=== PATIENT | female | born 1990 | race American Indian/Alaskan Native ===

== ENCOUNTER 2018-07-07 08:58 | Outpatient (CLI) | payer MEDICAID ==
--- NOTE | 2018-07-08 08:58 | Ultrasound Report ---
BILATERAL BREAST ULTRASOUND: 07/07/18 08:58:00 CLINICAL: History of bilateral breast lumps and status post right ultrasound-guided biopsy of a benign fibroadenoma 2 o'clock 2 cm from the nipple on 03/26/18. COMPARISON: Right breast ultrasound 02/09/15 and single view right mammogram 03/26/18 FINDINGS: Ultrasound of the right breast demonstrated an oval solid hypoechoic mass at 2 o'clock one centimeter from the nipple. It contains a biopsy clip, has a mild lobular margin and measures 1.5 x 1.4 x 0.9 cm.Previously it was described to be at 1 o'clock 3 cm from the nipple and measured 1.5 x 1.4 x 0.8 cm. A second solid hypoechoic mass with a mild globular margin is located retroareolar at 3 o'clock and measures 1.9 x 0.4 x 1.5 cm. Ultrasound of the left breast demonstrated an oval solid relatively smooth hypoechoic mass at 4 o'clock 3 cm from the nipple measuring 0.9-0.8 x 0.6 cm. An oval probably solid hypoechoic relatively smooth mass at 5 o'clock 2 cm from the nipple measures 0.5 x 0.3 x 0.6 cm. A heterogeneous solid hypoechoic slightly irregular mass at 8 o'clock 3 cm from the nipple measures 1.4 x 0.9 x 1.5 cm. IMPRESSION: A benign mobile 1.5 cm right fibroadenoma 1-2 o'clock is unchanged compared to the 2015 exam. Additional bilateral solid masses are probably benign and have morphology suggestive of fibroadenoma. RECOMMENDATION: 6 month followup bilateral breast ultrasound to reevaluate the size of masses. BIRADS 3 - - Probably Benign
== END 2018-07-07 08:59 | disposition home or self-care (01) ==
LOC: SPVWC 08:58
PROVIDERS: ATTEND Surgery
DX: D24.1 Benign neoplasm of right breast (principal)

== ENCOUNTER 2019-01-26 10:38 | Outpatient (CLI) | payer MEDICAID ==
--- NOTE | 2019-01-27 09:30 | Ultrasound Report ---
LIMITED BILATERAL BREAST ULTRASOUND HISTORY: Follow-up bilateral masses. She had an ultrasound-guided needle biopsy of a benign fibroaden jackie of the right breast at 2:00 2 cm from the nipple on 03/26/2018. COMPARISON: 07/07/2018 FINDINGS: Focused sonographic evaluation upon the location of the right breast demonstrates no distin ct abnormality. Focused sonographic evaluation upon the right breast demonstrated a stable benign fibroadenoma at 2:0 0 3 cm from the nipple measuring 1.5 x 0.7 x 1.2 cm compared to 1.4 x 0.9 x 1.5 cm. It contains a bio psy clip. An oval solid heterogeneous hypoechoic retroareolar mass at 3:00 measures 2.2 x 0.8 x 1.6 c m compared to 1.9 x 0.4 x 1.5 cm. No mass or cyst in the lower outer right breast in an area of pain. Focused sonographic evaluation upon the left breast demonstrated a slightly larger oval solid heterog eneous hypoechoic mass at 4:00 3 cm from the nipple measuring 11 x 4 x 14 mm compared to 8 x 6 x 9 mm . A stable oval solid heterogeneous hypoechoic mass at 5:00 3 cm from the nipple measures 6 x 3 x 5 m m compared to 6 x 5 x 3 mm. An oval heterogeneous solid hypoechoic mass with a lobular contour at 8:0 0 4 cm from the nipple measures 1.7 x 0.7 x 1.8 cm compared to 1.4 x 0.7 x 1.5 cm. IMPRESSION: 1. A stable benign fibroadenoma the right breast at 2:00 2 to 3 cm from the nipple. 2. Bilateral solid masses (one in the right breast and 3 in the left breast) are probably benign but measure slightly larger except for a stable mass at 5:00 3 cm from the nipple in the left breast. The slight differences in measurement may be related to differences in technologist and methods of measu rement. Recommend bilateral targeted 6 month follow-up ultrasound to reevaluate the size of masses. BIRADS 3: Probably benign. Signer Name: Arash Red MD Signed: 01/27/2019 9:25 AM Workstation Name: [id number]
== END 2019-01-26 10:39 | disposition home or self-care (01) ==
LOC: SPVWC 10:38
PROVIDERS: ATTEND Surgery
DX: N63.0 Unspecified lump in unspecified breast (principal); D24.1 Benign neoplasm of right breast

== ENCOUNTER 2019-08-18 08:15 | Outpatient (CLI) | payer MEDICAID ==
--- NOTE | 2019-08-18 09:34 | Ultrasound Report ---
LIMITED BILATERAL BREAST ULTRASOUND HISTORY: Six-month follow-up bilateral breast masses. She is currently 17 weeks . COMPARISON: 01/26/2019 FINDINGS: Focused sonographic evaluation upon the right breast demonstrated a benign fibroadenoma at 2:00 3 cm from the nipple measuring 1.7 x 0.9 x 1.2 cm compared to 1.5 x 0.7 x 1.2 cm. It contains a biopsy cli p. An oval solid heterogeneous hypoechoic retroareolar mass at 3:00 measures 2.1 x 0.8 x 1.7 cm khanh red to 2.2 x 0.8 x 1.6 cm . Focused sonographic evaluation upon the left breast demonstrated a stable oval solid heterogeneous hy poechoic mass at 4:00 3 cm from the nipple measuring 1.1 x 0.5 x 1.3 cm compared to 1.1 x 0.4 x 1.4 c m. An oval solid heterogeneous hypoechoic mass at 5:00 3 cm from the nipple measurers 0.6 x 0.3 x 0.7 cm compared to 0.6 x 0.3 x 0.5 cm. An oval heterogeneous solid hypoechoic mass with a lobular contou r at 8:00 4 cm from the nipple measures 1.7 x 0.8 x 1.9 cm compared to 1.7 x 0.7 x 1.8 cm. IMPRESSION: No significant change in bilateral solid breast masses. Recommendation: 6 month follow-up bilateral targeted breast ultrasound. Ideally bilateral masses whic h have not been biopsied will be followed for another year. BIRADS 3: Probably benign. Signer Name: Arash Red MD Signed: 08/18/2019 9:29 AM Workstation Name: [id number]
== END 2019-08-18 08:16 | disposition home or self-care (01) ==
LOC: SPVWC 08:15
PROVIDERS: ATTEND Surgery
DX: R92.8 Other abnormal and inconclusive findings on diagnostic imaging of breast (principal)

== ENCOUNTER 2020-01-17 19:24 | Outpatient (CLI) | payer MEDICAID ==
[2020-01-17 19:55] VITALS: BP 112/71
== END 2020-01-17 21:15 | disposition home or self-care (01) ==
LOC: TRG 19:24 → APU 19:34 → TRG 21:15
PROVIDERS: ATTEND Obstetrics & Gynecology
DX: O42.913 Preterm premature rupture of membranes, unspecified as to length of time between rupture and onset of labor, third trimester (principal); Z3A.38 38 weeks gestation of pregnancy
CPT/HCPCS: 59025